=== PATIENT | male | born 1995 | race Caucasian/White ===

== ENCOUNTER 2017-01-14 18:50 | Emergency (ER) | payer OTHER ==
[2017-01-14 19:09] VITALS: BP 126/56; PULSE 80; RESP 16; TEMP 98.2; O2SAT 96
[2017-01-14] MEDS ORDERED: ACETAMINOPHEN 325 MG TAB PO ONE (19:51)
[2017-01-14] MEDS ORDERED: ONDANSETRON DISINTEGRATING 4 MG TAB PO ONE (19:51)
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
== END 2017-01-14 21:00 | disposition home or self-care (01) ==
LOC: CED 18:50
DX: S06.0X0A Concussion without loss of consciousness, initial encounter (principal); S16.1XXA Strain of muscle, fascia and tendon at neck level, initial encounter; S20.219A Contusion of unspecified front wall of thorax, initial encounter; S40.812A Abrasion of left upper arm, initial encounter; V43.52XA Car driver injured in collision with other type car in traffic accident, initial encounter
CPT/HCPCS: 72050-PO; 99203-PO; G0463-PO; L0172